=== PATIENT | female | born 1980 | race American Indian/Alaskan Native ===

== ENCOUNTER 2017-10-12 13:52 | Emergency (ER) | payer MEDICAID, OTHER ==
[2017-10-12 14:03] VITALS: BP 140/90; PULSE 80; RESP 18; TEMP 98.3; O2SAT 100
[2017-10-12] MEDS ORDERED: Alum-Mag Hydrox-Simethicone Susp (30 mL) PO STA (14:25)
--- NOTE | 2017-10-12 14:26 | C.PDOC ---
History Of Present Illness 37 y/o female presents to the ER complaining of occasional burning sensation in the epigastrium which began last night. Patient states that the pain radiates from the epigastrium to the throat.Patient reports that the symptoms are consistent with her prior history of GERD.Patient takes Omeprazole daily but denies using Maalox for her symptoms. She notes that she had an upper endoscopy which was significant for GERD and hiatal hernia. Patient currently denies having the symptoms. 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 Time Seen by Provider: 10/12/17 14:17 Chief Complaint (Nursing): Chest Pain History Per: Patient History/Exam Limitations: no limitations Onset/Duration Of Symptoms: Days Current Symptoms Are (Timing): Gone Severity: Moderate Past Medical History Reviewed: Historical Data, Nursing Documentation, Vital Signs Vital Signs: Last Vital Signs Temp 98.3 F 10/12/17 13:59 Pulse 80 10/12/17 13:59 Resp 18 10/12/17 13:59 BP 140/90 10/12/17 13:59 Pulse Ox 100 10/12/17 21:35 - Medical History PMH: Gastritis, GERD, HTN Surgical History: No Surg Hx Family History: States: No Known Family Hx - Social History Hx Tobacco Use: No Hx Alcohol Use: Yes Hx Substance Use: No - Immunization History Hx Tetanus Toxoid Vaccination: No Hx Influenza Vaccination: No Hx Pneumococcal Vaccination: No Review Of Systems Except As Marked, All Systems Reviewed And Found Negative. Constitutional: Negative for: Fever, Chills Cardiovascular: Positive for: Chest Pain Physical Exam - Physical Exam Appears: Non-toxic, No Acute Distress Skin: Normal Color, Warm Head: Atraumatic, Normacephalic Eye(s): bilateral: Normal Inspection Nose: Normal Oral Mucosa: Moist Chest: Symmetrical, No Tenderness, Other (no rash, no digitally reproducible pain, chaperoned by nurse Yashira) Gastrointestinal/Abdominal: Normal Exam, Soft, No Tenderness Extremity: Normal ROM Neurological/Psych: Oriented x3, Normal Speech, Normal Motor, Normal Sensation ED Course And Treatment ECG Rhythm: Sinus Rhythm ECG Interpretation: Normal Rate From EC O2 Sat by Pulse Oximetry: 100 (RA) Pulse Ox Interpretation: Normal Progress Note: Patient given Maalox. Medical Decision Making Medical Decision Making: classic GERD, h/o same and hiatal hernia normal ekg no costochondritis not using Maalox-educated Disposition Doctor Will See Patient In The: Office Counseled Patient/Family Regarding: Studies Performed, Diagnosis - Disposition Referrals: Evan Valentine MD [Medical Doctor] - Disposition: HOME/ ROUTINE Disposition Time: 14:25 Condition: GOOD Additional Instructions: continue omeprazole daily maalox 30 cc (one tablespoon) 5x/day for three days, then as needed- up to 5x/ day. GERD diet and habits for diet hygiene. 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 Instructions: Acid Reflux (Gastroesophageal Reflux Disease), Adult (DC) Forms: [employer] ([place]wana) - Clinical Impression Clinical Impression: Chest discomfort - Scribe Statement The provider has reviewed the documentation as recorded by the Gorgeibemperatriz Lundy Provider Attestation: All medical record entries made by the Scribe were at my direction and personally dictated by me. I have reviewed the chart and agree that the record accurately reflects my personal performance of the history, physical exam, medical decision making, and the department course for this patient. I have also personally directed, reviewed, and agree with the discharge instructions and disposition.
[2017-10-12] MEDS ORDERED: Aluminum Hydroxide/Magnesium Hydroxide Susp (30 mL) ONE (14:30)
--- NOTE | 2017-10-12 22:27 | CARD ---
APPROVED REPORT EKG Measurement Heart [id number] <Conclusion> Normal sinus rhythm Normal ECG
== END 2017-10-12 14:38 | disposition home or self-care (01) ==
LOC: C.ER 13:52
DX: R07.9 Chest pain, unspecified (principal); I10 Essential (primary) hypertension; K21.9 Gastro-esophageal reflux disease without esophagitis

== ENCOUNTER 2018-01-27 18:58 | Emergency (ER) | payer SELFPAY ==
[2018-01-27 19:02] VITALS: BP 132/88; PULSE 83; RESP 20; TEMP 98.1; O2SAT 100
--- NOTE | 2018-01-27 19:29 | C.PDOC ---
History Of Present Illness 37 year old female complains of left ear fullness for 5 weeks. Patient reports she was diagnosed with ear infection on 12/18 and given antibiotic ear drops to use. She used them for 5 days and stopped when she felt better. Patient admits to recent travel and returned 2 weeks ago and now has been having fullness to ear again and feels there is fluid, but denies any pain or fever. She has leftover ear drops and wants to be evaluated and if she continue to use ear drops Time Seen by Provider: 01/27/18 19:10 Chief Complaint (Nursing): ENT Problem History Per: Patient History/Exam Limitations: None Onset/Duration Of Symptoms: Days Current Symptoms Are (Timing): Still Present Quality (Ear): Other (Fullness) Symptoms Have Been: Continuous Past Medical History Reviewed: Historical Data, Nursing Documentation, Vital Signs Vital Signs: Last Vital Signs Temp 98.1 F 01/27/18 19:00 Pulse 83 01/27/18 19:00 Resp 20 01/27/18 19:35 BP 132/88 01/27/18 19:00 Pulse Ox 100 01/27/18 19:30 - Medical History PMH: Gastritis, GERD, HTN Family History: States: Unknown Family Hx - Social History Hx Tobacco Use: No Hx Alcohol Use: Yes Hx Substance Use: No - Immunization History Hx Tetanus Toxoid Vaccination: No Hx Influenza Vaccination: No Hx Pneumococcal Vaccination: No Review Of Systems Constitutional: Negative for: Fever, Chills ENT: Positive for: Ear Pain. Negative for: Throat Pain Respiratory: Negative for: Cough Physical Exam - Physical Exam Appears: Non-toxic Skin: Normal Color, Warm, Dry Head: Atraumatic, Normacephalic Eye(s): bilateral: Normal Inspection Ear(s): Left: TM Dull (No erythema), Right: Normal Nose: Normal Oral Mucosa: Moist Throat: Normal, No Erythema, No Exudate Neck: Normal, Supple Neurological/Psych: Oriented x3, Normal Speech ED Course And Treatment O2 Sat by Pulse Oximetry: 100 Medical Decision Making Medical Decision Making: Patient with ear fullness and clogged sensation, no signs of AOM. I advised decongestant to help with sensation and can use ear drops and follow up in one week Disposition Counseled Patient/Family Regarding: Diagnosis, Need For Followup, Rx Given - Disposition Referrals: Kobe Lofton MD [Staff Provider] - Disposition: HOME/ ROUTINE Disposition Time: 19:27 Condition: GOOD Additional Instructions: apply ear drops twice daily for one week follow up with your doctor or ENT Instructions: Outer Ear Infection (DC) Forms: [employer] (Eth[place]ian) - POA Present On Arrival: None - Clinical Impression Clinical Impression: Otitis externa - PA / [employer] / Resident Statement MD/DO has reviewed & agrees with the documentation as recorded. - Scribe Statement The provider has reviewed the documentation as recorded by the Scribemperatriz Nguyen All medical record entries made by the Gorgeibemperatriz were at my direction and personally dictated by me. I have reviewed the chart and agree that the record accurately reflects my personal performance of the history, physical exam, medical decision making, and the department course for this patient. I have also personally directed, reviewed, and agree with the discharge instructions and disposition.
== END 2018-01-27 19:35 | disposition home or self-care (01) ==
LOC: C.ER 18:58
DX: H60.92 Unspecified otitis externa, left ear (principal)